=== PATIENT | female | born 1945 | race Caucasian/White ===

== ENCOUNTER 2017-11-21 09:46 | Emergency (ER) | payer OTHER ==
[~2017-11-21] VITALS: Ht 160 cm; Wt 60.7 kg
[2017-11-21 09:56] VITALS: TEMP 36.6; Ht 160 cm; Wt 60.7 kg
--- NOTE | 2017-11-21 10:17 | EMERGENCY ROOM VISIT NOTE ---
History Report prepared by Constantine: Phillip Ruano Under the Supervision of: Dr. Satnam Mark M.D. First contact with patient: 10:01 Chief Complaint: FALL Stated Complaint: FALL History of Present Illness The patient is a 72 year old female who presents to the Emergency Room due to a recent fall. Patient states that she fell face forward after tripping on a step because "her leg didn't lift high enough". She states that she believes the reason for fall was because of her history of multiple sclerosis. She adds that she has epistaxis out of her left nostril. Patient adds that she scraped her knees. Patient states that she has a history of Graves' disease. Patient denies taking any blood thinners. Patient states that she did not pass out from the fall. Patient denies any weakness, numbness, loss of consciousness, vision changes, teeth changes, neck pain, shortness of breath, chest pain, and abdominal pain. She denies any pain movement of her neck. Source of History: patient Onset: Recent Position: head, nose, knee (bilateral) Modifying Factors (Worsening): other (None) Modifying Factors (Relieving): other (None) Associated Symptoms: No LOC, No neck pain, No chest pain, No SOB, No abdominal pain Note: Patient has epistaxis. Patient denies vision changes or teeth changes. Review of Systems See HPI for pertinent positives & negatives. A total of 10 systems reviewed and were otherwise negative. Past Medical & Surgical Medical Problems: (1) Graves' disease (2) Multiple sclerosis Old medical records were reviewed. Nurse's notes were reviewed and I agree with. Family History No pertinent family history. Social History Smoking Status: Never Smoker Marital Status: Housing Status: lives with family Current/Historical Medications Scheduled Calcium Carbonate-Cholecalcife (Caltrate 600+D), 1 TAB PO DAILY Cyanocobalamin (Vitamin B12), 1,000 MCG PO DAILY Folic Acid (Folvite), 1 MG PO DAILY Levothyroxine Sodium (Synthroid), 100 MCG PO DAILY Minocycline (Minocin), 100 MG PO DAILY Allergies Coded Allergies: No Known Allergies (Unverified , 11/21/17) Physical Exam Vital Signs Date Time Temp Pulse Resp B/P (MAP) Pulse Ox O2 Delivery O2 Flow Rate FiO2 11/21/17 11:16 64 16 139/74 96 Room Air 11/21/17 09:56 36.6 65 20 136/68 99 Room Air Physical Exam General: Non-ill appearing older female in no acute distress. HEENT: Moderate facial contusion of left check and nose. Dried blood in nares. No active bleeding. No septal hematoma. Mid face is stable. Pupils are equal round and reactive to light. Extraocular movements are intact. Oropharynx is pink with moist mucous membranes. No swelling of the mouth lips or tongue. Neck: Supple with a midline trachea. No meningeal signs or stiffness, no JVD or bruits. No Stridor. Chest: Clear to auscultation bilaterally. No wheezes or rhonchi. No increased work of breathing. Heart: regular rate and rhythm. Abdomen: Soft nontender, nondistended without rebound guarding or rigidity. Extremities: No cyanosis clubbing or edema. No calf tenderness or assymetry Spine/Back. Non tender to palpation. No CVA tenderness Skin: Good turgor without rashes. Neurologic exam: Cranial nerves two through 12 are intact. Motor and sensation are intact and symmetrical throughout. Medical Decision & Procedures ER Provider Diagnostic Interpretation: Radiology results as stated below per my review and radiologist interpretation: HEAD CT NONCONTRAST CT DOSE: 1306.50 mGy.cm HISTORY: Fall. Facial injury. eval for trauma TECHNIQUE: Multiaxial CT images of the head were performed without the use of intravenous contrast. Automated exposure control was utilized for this study. A dose lowering technique was utilized adhering to the principles of ALARA. Comparison: None. Findings: Nasal bone fractures. The visualized paranasal sinuses and mastoid air cells are clear. The calvarium and skull base are intact. The ventricles and sulci are within normal limits. There is no mass, hematoma, midline shift, or acute infarct. Impression: No acute intracranial abnormality. Nasal bone fractures. Electronically signed by: Kurtis Ramirez M.D. 11/21/2017 10:[address] DOSE: HISTORY: Fall. Facial injury. eval for fracture TECHNIQUE: Multiaxial CT images of the maxillofacial region were performed and reformatted in the coronal plane without the use of contrast. A dose lowering technique was utilized adhering to the principles of ALARA. COMPARISON: None. FINDINGS: Right nasal septal deviation. The visualized cervical spine, skull base, zygomatic arches, lamina papyracea, orbital floors, pterygoid plates, and mandible are intact. Nondisplaced nasal bone fractures. The paranasal sinuses and mastoid air cells are clear. Nasal soft tissue swelling. The orbits are unremarkable. IMPRESSION: Nondisplaced nasal bone fractures. Electronically signed by: Kurtis Ramirez M.D. 11/21/2017 10:50 AM ED Course 1002: Past medical records reviewed. The patient was evaluated in room B4, and a complete history and physical examination were performed. 1044: I reassessed the patient. She appears comfortable and has multiple family members in the room with her now. 1114: Upon reevaluation, the patient is resting comfortably. I discussed the results and treatment plan with her. She verbalized agreement of the treatment plan. The patient was discharged home. Medical Decision Differentials include, but are not limited to; nasal fracture, facial fracture, and closed-head injury. This patient comes in as described above. She has difficulty walking at baseline and tripped going up the stairs. This was a mechanical fall there is no symptoms prior to falling otherwise she hit her face there is no loss of consciousness she did have a bloody nose initially but this. She has no malocclusion of her teeth. she has no significant neck pain. there is no chest pain or trauma or shortness of breath or palpitations. No abdominal pain or trauma. I did a CAT scan of her head and face and she has nondisplaced nasal fractures. On exam, she has no active bleeding no septal hematoma. She strongly desires to go home. she is on antibiotics with doxycycline for a stye I told her to continue this for prophylaxis as well she should rest ice and elevate, avoid blowing her nose. she is from out of town is to follow-up with her doctor or any nose and throat specialist on Thursday and Thursday. Return if: increasing pain, worsening of symptoms, any new problems or concerns. Medication Reconcilliation Current Medication List: was personally reviewed by me Blood Pressure Screening Patient's blood pressure: Normal blood pressure Blood pressure disposition: Did not require urgent referral Impression Primary Impression: Nasal fracture Scribe Attestation The scribe's documentation has been prepared under my direction and personally reviewed by me in its entirety. I confirm that the note above accurately reflects all work, treatment, procedures, and medical decision making performed by me. Departure Information Dispostion Home / Self-Care Referrals No Doctor, Assigned (PCP) Forms HOME CARE DOCUMENTATION FORM, IMPORTANT VISIT INFORMATION Patient Instructions [facility] Additional Instructions Rest. Ice intermittent. Sleep elevated For pain, may use Tylenol/acetaminophen a maximum of 650 mg every 6 hours. Do not take with any other medications that contain Tylenol/acetaminophen Continue minocycline-antibioitc Avoid blowing your nose Follow-up with your doctor or nuclear medicine supervisor on Thursday Return if: Worsening of symptoms, increasing pain, significant nasal bleeding, worsening symptoms, any new problems or concerns.
--- NOTE | 2017-11-21 10:47 | DIAGNOSTIC IMAGING REPORT ---
HEAD CT NONCONTRAST CT DOSE: 1306.50 mGy.cm HISTORY: Fall. Facial injury. eval for trauma TECHNIQUE: Multiaxial CT images of the head were performed without the use of intravenous contrast. Automated exposure control was utilized for this study. A dose lowering technique was utilized adhering to the principles of ALARA. Comparison: None. Findings: Nasal bone fractures. The visualized paranasal sinuses and mastoid air cells are clear. The calvarium and skull base are intact. The ventricles and sulci are within normal limits. There is no mass, hematoma, midline shift, or acute infarct. Impression: No acute intracranial abnormality. Nasal bone fractures. Electronically signed by: Kurtis Ramirez M.D. 11/21/2017 10:46 AM Dictated Date/Time: 11/21/2017 10:41 AM
--- NOTE | 2017-11-21 10:52 | DIAGNOSTIC IMAGING REPORT ---
MAXILLOFACIAL CT CT DOSE: HISTORY: Fall. Facial injury. eval for fracture TECHNIQUE: Multiaxial CT images of the maxillofacial region were performed and reformatted in the coronal plane without the use of contrast. A dose lowering technique was utilized adhering to the principles of ALARA. COMPARISON: None. FINDINGS: Right nasal septal deviation. The visualized cervical spine, skull base, zygomatic arches, lamina papyracea, orbital floors, pterygoid plates, and mandible are intact. Nondisplaced nasal bone fractures. The paranasal sinuses and mastoid air cells are clear. Nasal soft tissue swelling. The orbits are unremarkable. IMPRESSION: Nondisplaced nasal bone fractures. Electronically signed by: Kurtis Ramirez M.D. 11/21/2017 10:50 AM Dictated Date/Time: 11/21/2017 10:46 AM
[2017-11-21 11:16] VITALS: BP 139/74; PULSE 64; O2SAT 96
[2017-11-21] MEDS ORDERED: CYAN100020 PO (11:25)
[2017-11-21] MEDS ORDERED: MINO100C22 PO (11:25)
[2017-11-21] MEDS ORDERED: LEVO100T PO (11:25)
[2017-11-21] MEDS ORDERED: CALC-354 PO (11:25)
[2017-11-21] MEDS ORDERED: FOLI1TAB8 PO (11:25)
== END 2017-11-21 11:34 | disposition home or self-care (01) ==
LOC: C.EDB 09:49
DX: S02.2XXA Fracture of nasal bones, initial encounter for closed fracture (principal); S00.83XA Contusion of other part of head, initial encounter; W10.9XXA Fall (on) (from) unspecified stairs and steps, initial encounter; G35 Multiple sclerosis; E05.00 Thyrotoxicosis with diffuse goiter without thyrotoxic crisis or storm; Z79.899 Other long term (current) drug therapy